=== PATIENT | female | born 1990 ===

== ENCOUNTER 2021-06-03 21:35 | Inpatient (IN) | payer MEDICAID ==
[~2021-06-03] VITALS: Ht 167.6 cm; Wt 98.0 kg
[2021-06-03] MEDS ORDERED: CEPHALEXIN MONOHYDRATE 250 MG CAPSULE PO ONE (23:30)
[2021-06-03] MEDS ORDERED: MUPIROCIN CALCIUM 2% 22 GM OINTMENT TP ONE (23:30)
[2021-06-04] MEDS ORDERED: HALOPERIDOL LACTATE 5 MG/ML VIAL IM ONE
[2021-06-04] MEDS ORDERED: LORazepam 2 MG/ML VIAL IM ONE
[2021-06-04] MEDS ORDERED: DiphenhydrAMINE HCL 50 MG/ML VIAL IM ONE
[2021-06-04 01:39] LABS: COVID AG,FIA SOURCE NASOPHARYNGEAL
[2021-06-04 03:04] LABS: BASOPHILS % (AUTO) 1.4 % (0.0-2.0); EOSINOPHILS % (AUTO) 5.9 % (1.0-6.0); HEMATOCRIT 36.4 % (36-46); HEMOGLOBIN 12.1 g/dL (12.0-16.0); LYMPHOCYTES # (AUTO) 1.8 K/uL (1.0-4.8); LYMPHOCYTES % (AUTO) 28.4 % (22.0-44.0); MEAN CORPUSCULAR HEMOGLOBIN 28.8 pg (26.0-34.0); MEAN CORPUSCULAR HGB CONC 33.3 G/dL (31.0-37.0); MEAN CORPUSCULAR VOLUME 87 fL (80-100); MONOCYTES # (AUTO) 0.6 K/uL (0.1-1.0); MONOCYTES % (AUTO) 10.1 % (2.0-9.0); NEUTROPHILS # (AUTO) 3.5 K/uL (1.8-7.7); NEUTROPHILS % (AUTO) 54.2 % (40.0-70.0); PLATELET COUNT (AUTO) 234 K/uL (150-450); RED BLOOD CELL COUNT(AUTO) 4.21 MIL/uL (4.00-5.20); RED CELL DISTRIBUTION WIDTH 13.8 % (11.5-14.5)
[2021-06-04 03:24] LABS: ANION GAP 8 mmol/L (8-16); CALCIUM, TOTAL 8.7 mg/dL (8.8-10.5); CARBON DIOXIDE 29 mmol/L (22-29); CHLORIDE 104 mmol/L (98-107); CREATININE 0.74 mg/dL (0.60-1.30); GLUCOSE,RANDOM 91 mg/dL (70-110); POTASSIUM 3.7 mmol/L (3.5-5.1); SODIUM SERUM 141 mmol/L (136-145); UREA NITROGEN, BLOOD 6 mg/dL (7-18)
[2021-06-04 03:25] LABS: GLOMERULAR FILTR. RATE CALC > 60 mL/min (>60)
[2021-06-04 03:31] LABS: ALANINE AMINOTRANSFERASE 22 U/L (12-78); ALBUMIN 3.1 g/dL (3.4-5.0); ALKALINE PHOSPHATASE 69 U/L (46-116); ASPARTATE AMINOTRANSFERASE 53 U/L (15-37); BILIRUBIN,TOTAL 0.5 mg/dL (0.1-1.0); TOTAL PROTEIN, SERUM 7.1 g/dL (6.4-8.2)
[2021-06-04] MEDS ORDERED: INFLUENZA VIRUS VACCINE QVS 2021-22 (6MO+)/PF 60 MCG/0.5 ML SYRINGE IM. ONE (05:15)
[2021-06-04 08:16] VITALS: BP 128/75
[2021-06-04] MEDS ORDERED: ALBUTEROL SULFATE HFA 90 MCG/PUFF 8 GM INHALER IH PRN (11:45)
[2021-06-04] MEDS ORDERED: DOCUSATE SODIUM 100 MG CAPSULE PO PRN (11:45)
[2021-06-04] MEDS ORDERED: ACETAMINOPHEN 325 MG TABLET PO PRN (11:45)
[2021-06-04] MEDS ORDERED: ONDANSETRON HCL 4 MG TABLET PO PRN (11:45)
[2021-06-04] MEDS ORDERED: CloNIDine HCL 0.1 MG TABLET PO PRN (11:45)
[2021-06-04] MEDS ORDERED: MAGNESIUM HYDROXIDE SUSPENSION 30 ML UDCUP PO PRN (11:45)
[2021-06-04] MEDS ORDERED: LOPERAMIDE HCL 2 MG CAPSULE PO PRN (11:45)
[2021-06-04] MEDS ORDERED: GuaiFENesin/D-METHORPHAN [SUGAR-FREE] 200-20MG/10 ML SYRUP UDCUP PO PRN (11:45)
[2021-06-04] MEDS ORDERED: PETROLATUM,WHITE 28 GM JELLY TP PRN (11:45)
[2021-06-04] MEDS ORDERED: MAG HYDROX/AL HYDROX/SIMETH ES 30 ML SUSPENSION UDCUP PO PRN (11:45)
[2021-06-04] MEDS ORDERED: NICOTINE 14 MG/24 HOUR PATCH TD PRN (11:45)
[2021-06-04] MEDS: BACITRACIN 28 GM OINTMENT TP SCH (16:29)
[2021-06-04] MEDS: CEPHALEXIN MONOHYDRATE 500 MG CAPSULE PO SCH (16:29)
[2021-06-04] MEDS: RisperiDONE 1 MG TABLET PO SCH (20:24)
[2021-06-04] MEDS: ZOLPIDEM TARTRATE 10 MG TABLET PO PRN (20:24)
[2021-06-05 01:42] VITALS: BP 120/71
[2021-06-05 08:41] VITALS: BP 110/66
[2021-06-05] MEDS: RisperiDONE 1 MG TABLET PO SCH ×3 (08:41→21:00)
[2021-06-05] MEDS: CEPHALEXIN MONOHYDRATE 500 MG CAPSULE PO SCH ×3 (08:41→17:03)
[2021-06-05] MEDS: BACITRACIN 28 GM OINTMENT TP SCH ×2 (08:41→17:03)
[2021-06-05] MEDS: LORazepam 2 MG TABLET PO PRN ×2 (08:41→17:40)
[2021-06-06 00:33] VITALS: BP 108/62
[2021-06-06] MEDS: HALOPERIDOL 5 MG TABLET PO PRN (06:37)
[2021-06-06] MEDS: LORazepam 2 MG TABLET PO PRN (06:37)
[2021-06-06] MEDS: CEPHALEXIN MONOHYDRATE 500 MG CAPSULE PO SCH ×4 (08:32→16:21)
[2021-06-06] MEDS: BACITRACIN 28 GM OINTMENT TP SCH ×3 (08:33→16:20)
[2021-06-06] MEDS: RisperiDONE 1 MG TABLET PO SCH ×3 (08:33→20:25)
[2021-06-06 08:39] VITALS: BP 120/69
[2021-06-06 16:20] VITALS: BP 110/66
[2021-06-07 00:28] VITALS: BP 117/88
[2021-06-07 08:28] VITALS: BP 124/79
[2021-06-07] MEDS: CEPHALEXIN MONOHYDRATE 500 MG CAPSULE PO SCH ×3 (08:36→16:32)
[2021-06-07] MEDS: LORazepam 2 MG TABLET PO PRN ×2 (08:36→16:32)
[2021-06-07] MEDS: RisperiDONE 1 MG TABLET PO SCH ×2 (08:36→20:41)
[2021-06-07] MEDS: BACITRACIN 28 GM OINTMENT TP SCH ×2 (08:37→16:31)
[2021-06-07 16:08] VITALS: BP 109/76
[2021-06-07] MEDS: ZOLPIDEM TARTRATE 10 MG TABLET PO PRN (20:45)
[2021-06-08 01:31] VITALS: BP 108/17
[2021-06-08 08:26] VITALS: BP 120/70
[2021-06-08] MEDS: LORazepam 2 MG TABLET PO PRN (08:54)
[2021-06-08] MEDS: CEPHALEXIN MONOHYDRATE 500 MG CAPSULE PO SCH ×3 (10:01→16:26)
[2021-06-08] MEDS: BACITRACIN 28 GM OINTMENT TP SCH ×2 (10:01→16:26)
[2021-06-08] MEDS: RisperiDONE 1 MG TABLET PO SCH ×2 (10:01→20:05)
[2021-06-08 16:16] VITALS: BP 123/78
[2021-06-08] MEDS: ZOLPIDEM TARTRATE 10 MG TABLET PO PRN (20:08)
[2021-06-09] MEDS: LORazepam 2 MG TABLET PO PRN ×3 (01:26→16:30)
[2021-06-09 01:33] VITALS: BP 129/87
[2021-06-09] MEDS: IBUPROFEN 400 MG TABLET PO PRN (01:38)
[2021-06-09] MEDS: CEPHALEXIN MONOHYDRATE 500 MG CAPSULE PO SCH ×3 (08:22→16:30)
[2021-06-09] MEDS: RisperiDONE 1 MG TABLET PO SCH (08:22)
[2021-06-09] MEDS: BACITRACIN 28 GM OINTMENT TP SCH ×2 (08:23→16:30)
[2021-06-09 08:35] VITALS: BP 129/84
[2021-06-09] MEDS: HALOPERIDOL 5 MG TABLET PO PRN (09:42)
[2021-06-09 16:13] VITALS: BP 131/74
[2021-06-09] MEDS: RisperiDONE 2 MG TABLET PO SCH (20:09)
[2021-06-10 02:19] VITALS: BP 126/71
[2021-06-10 03:02] VITALS: BP 114/90
[2021-06-10] MEDS: LORazepam 2 MG TABLET PO PRN ×5 (03:02→17:50)
[2021-06-10 08:21] VITALS: BP 118/79
[2021-06-10] MEDS: RisperiDONE 2 MG TABLET PO SCH ×2 (09:14→20:17)
[2021-06-10] MEDS: BACITRACIN 28 GM OINTMENT TP SCH ×2 (09:14→16:16)
[2021-06-10] MEDS: CEPHALEXIN MONOHYDRATE 500 MG CAPSULE PO SCH ×3 (09:14→16:16)
[2021-06-10] MEDS: HALOPERIDOL 5 MG TABLET PO PRN (12:28)
[2021-06-10] MEDS: ZOLPIDEM TARTRATE 10 MG TABLET PO PRN (20:17)
[2021-06-11] MEDS: CEPHALEXIN MONOHYDRATE 500 MG CAPSULE PO SCH ×2 (08:14→12:33)
[2021-06-11] MEDS: RisperiDONE 2 MG TABLET PO SCH ×2 (08:15→20:08)
[2021-06-11] MEDS: BACITRACIN 28 GM OINTMENT TP SCH ×2 (08:15→17:07)
[2021-06-11] MEDS: HALOPERIDOL 5 MG TABLET PO PRN (08:32)
[2021-06-11] MEDS: LORazepam 2 MG TABLET PO PRN ×2 (08:32→13:04)
[2021-06-12] MEDS: RisperiDONE 2 MG TABLET PO SCH ×2 (08:16→21:39)
[2021-06-12] MEDS: LORazepam 2 MG TABLET PO PRN ×2 (08:16→14:15)
[2021-06-12] MEDS: HALOPERIDOL 5 MG TABLET PO PRN (08:16)
[2021-06-12 10:25] VITALS: BP 126/70
[2021-06-12] MEDS: BACITRACIN 28 GM OINTMENT TP SCH ×2 (12:55→16:57)
[2021-06-12 16:13] VITALS: BP 114/64
[2021-06-13 00:53] VITALS: BP 118/72
[2021-06-13 03:48] VITALS: BP 118/76
[2021-06-13] MEDS: LORazepam 2 MG TABLET PO PRN ×3 (05:52→17:33)
[2021-06-13] MEDS: HALOPERIDOL 5 MG TABLET PO PRN ×2 (05:52→19:49)
[2021-06-13 08:18] VITALS: BP 120/74
[2021-06-13] MEDS: BACITRACIN 28 GM OINTMENT TP SCH ×2 (09:02→17:14)
[2021-06-13] MEDS: RisperiDONE 2 MG TABLET PO SCH ×2 (09:02→20:27)
[2021-06-13 16:09] VITALS: BP 115/64
[2021-06-14 04:28] VITALS: BP 120/75
[2021-06-14] MEDS ORDERED: DiphenhydrAMINE HCL 50 MG/ML VIAL ONE (07:52)
[2021-06-14] MEDS ORDERED: LORazepam 2 MG/ML VIAL ONE (07:52)
[2021-06-14] MEDS ORDERED: HALOPERIDOL LACTATE 5 MG/ML VIAL ONE (07:52)
[2021-06-14] MEDS ORDERED: HALOPERIDOL LACTATE 5 MG/ML VIAL IM ONE (08:00)
[2021-06-14] MEDS ORDERED: LORazepam 2 MG/ML VIAL IM ONE (08:00)
[2021-06-14] MEDS ORDERED: DiphenhydrAMINE HCL 50 MG/ML VIAL IM ONE (08:00)
[2021-06-14] MEDS: RisperiDONE 2 MG TABLET PO SCH ×2 (08:35→20:06)
[2021-06-14] MEDS: BACITRACIN 28 GM OINTMENT TP SCH ×2 (08:35→17:04)
[2021-06-14] MEDS: LORazepam 2 MG TABLET PO PRN (17:48)
[2021-06-15 02:05] VITALS: BP 116/68
[2021-06-15] MEDS: RisperiDONE 2 MG TABLET PO SCH ×2 (07:57→20:16)
[2021-06-15] MEDS: LORazepam 2 MG TABLET PO PRN ×2 (07:58→12:13)
[2021-06-15] MEDS: BACITRACIN 28 GM OINTMENT TP SCH ×2 (07:59→17:19)
[2021-06-15] MEDS: HALOPERIDOL 5 MG TABLET PO PRN (07:59)
[2021-06-15] MEDS: DIVALPROEX SODIUM 500 MG DR TABLET PO SCH ×2 (07:59→20:16)
[2021-06-15 08:10] VITALS: BP 149/99
[2021-06-15 09:30] VITALS: BP 130/74
[2021-06-15 16:08] VITALS: BP 133/91
[2021-06-16 02:08] VITALS: BP 126/86
[2021-06-16] MEDS: LORazepam 2 MG TABLET PO PRN ×3 (02:36→13:36)
[2021-06-16 08:24] VITALS: BP 118/63
[2021-06-16] MEDS: RisperiDONE 2 MG TABLET PO SCH ×2 (08:26→20:52)
[2021-06-16] MEDS: BACITRACIN 28 GM OINTMENT TP SCH ×2 (08:26→16:13)
[2021-06-16] MEDS: DIVALPROEX SODIUM 500 MG DR TABLET PO SCH ×2 (08:26→20:52)
[2021-06-16] MEDS: HALOPERIDOL 5 MG TABLET PO PRN (09:49)
[2021-06-16 16:09] VITALS: BP 136/97
[2021-06-17 01:42] VITALS: BP 124/84
[2021-06-17] MEDS: LORazepam 2 MG TABLET PO PRN ×3 (06:40→13:58)
[2021-06-17] MEDS: DIVALPROEX SODIUM 500 MG DR TABLET PO SCH ×2 (08:06→20:49)
[2021-06-17] MEDS: RisperiDONE 2 MG TABLET PO SCH ×2 (08:06→20:49)
[2021-06-17] MEDS: BACITRACIN 28 GM OINTMENT TP SCH ×2 (08:06→16:33)
[2021-06-17 08:33] VITALS: BP 125/60
[2021-06-17] MEDS: HALOPERIDOL 5 MG TABLET PO PRN (08:47)
[2021-06-18 01:14] VITALS: BP 108/77
[2021-06-18] MEDS: LORazepam 2 MG TABLET PO PRN ×2 (06:38→17:07)
[2021-06-18] MEDS: HALOPERIDOL 5 MG TABLET PO PRN (06:38)
[2021-06-18] MEDS: DIVALPROEX SODIUM 500 MG DR TABLET PO SCH ×2 (08:03→20:11)
[2021-06-18] MEDS: RisperiDONE 2 MG TABLET PO SCH ×2 (08:03→20:11)
[2021-06-18 08:24] VITALS: BP 109/72
[2021-06-18 08:37] LABS: CHOL/HDL RATIO 3.6 (3.9-5.7)
[2021-06-18] MEDS: BACITRACIN 28 GM OINTMENT TP SCH ×2 (09:10→17:08)
[2021-06-19 00:56] VITALS: BP 102/66
[2021-06-19] MEDS: LORazepam 2 MG TABLET PO PRN ×3 (04:01→12:31)
[2021-06-19] MEDS: HALOPERIDOL 5 MG TABLET PO PRN ×2 (04:01→08:30)
[2021-06-19] MEDS: IBUPROFEN 400 MG TABLET PO PRN (04:05)
[2021-06-19 08:14] VITALS: BP 118/83
[2021-06-19] MEDS: BACITRACIN 28 GM OINTMENT TP SCH ×2 (08:21→16:34)
[2021-06-19] MEDS: RisperiDONE 2 MG TABLET PO SCH ×2 (08:21→20:02)
[2021-06-19] MEDS: DIVALPROEX SODIUM 500 MG DR TABLET PO SCH ×2 (08:21→20:02)
[2021-06-19 08:35] LABS: GLUCOMETER DEV NAME(LOC) POC.BV
[2021-06-19 16:08] VITALS: BP 136/62
[2021-06-20] MEDS: LORazepam 2 MG TABLET PO PRN ×3 (02:12→16:57)
[2021-06-20] MEDS: ZOLPIDEM TARTRATE 10 MG TABLET PO PRN (02:12)
[2021-06-20 02:13] VITALS: BP 122/66
[2021-06-20] MEDS: DIVALPROEX SODIUM 500 MG DR TABLET PO SCH ×2 (08:10→20:07)
[2021-06-20] MEDS: BACITRACIN 28 GM OINTMENT TP SCH ×2 (08:10→16:57)
[2021-06-20] MEDS: RisperiDONE 2 MG TABLET PO SCH ×2 (08:10→20:07)
[2021-06-20 08:13] VITALS: BP 119/65
[2021-06-20 16:32] VITALS: BP 120/81
[2021-06-21 00:24] VITALS: BP 116/76
[2021-06-21] MEDS: LORazepam 2 MG TABLET PO PRN ×3 (04:21→21:28)
[2021-06-21] MEDS: RisperiDONE 2 MG TABLET PO SCH ×2 (07:56→20:06)
[2021-06-21] MEDS: BACITRACIN 28 GM OINTMENT TP SCH ×2 (07:56→18:01)
[2021-06-21] MEDS: DIVALPROEX SODIUM 500 MG DR TABLET PO SCH ×2 (07:56→20:06)
[2021-06-21 08:09] VITALS: BP 102/70
[2021-06-21] MEDS: HALOPERIDOL 5 MG TABLET PO PRN (10:41)
[2021-06-21 17:38] VITALS: BP 119/68
[2021-06-22 00:32] VITALS: BP 114/72
[2021-06-22] MEDS: LORazepam 2 MG TABLET PO PRN (04:01)
[2021-06-22] MEDS: RisperiDONE 2 MG TABLET PO SCH ×2 (08:12→20:41)
[2021-06-22] MEDS: DIVALPROEX SODIUM 500 MG DR TABLET PO SCH ×2 (08:12→20:41)
[2021-06-22] MEDS: BACITRACIN 28 GM OINTMENT TP SCH ×2 (08:12→17:44)
[2021-06-22 09:42] VITALS: BP 132/67
[2021-06-22 16:33] VITALS: BP 126/75
[2021-06-22] MEDS ORDERED: RISP2TAB45 PO (17:16)
[2021-06-22] MEDS ORDERED: DIVA-112 PO (17:16)
[2021-06-23 02:25] VITALS: BP 130/86
[2021-06-23] MEDS: LORazepam 2 MG TABLET PO PRN (02:51)
== END 2021-06-23 07:30 | disposition home or self-care (01) | DRG 750 ==
LOC: EMS 21:37 → B3A 06-04 02:55 → EDBD 06-04 02:55 → B3A 06-09 11:05 → B2S 06-22 17:35
PROVIDERS: ADMIT Psychiatry & Neurology Psychiatry; ATTEND Psychiatry & Neurology Psychiatry
DX: F20.0 Paranoid schizophrenia (principal); G93.40 Encephalopathy, unspecified; E66.9 Obesity, unspecified; Z20.822 Contact with and (suspected) exposure to COVID-19; F31.9 Bipolar disorder, unspecified; L01.00 Impetigo, unspecified; F17.210 Nicotine dependence, cigarettes, uncomplicated; F99 Mental disorder, not otherwise specified; Z68.34 Body mass index [BMI] 34.0-34.9, adult; Z65.3 Problems related to other legal circumstances; Z79.899 Other long term (current) drug therapy
CPT/HCPCS: 80053; 80061; 80164; 85025; 99285; G0480; J1200; J1630; J2060